=== PATIENT | female | born 1940 | race Caucasian/White ===

== ENCOUNTER 2021-02-25 12:33 | Emergency (ER) | payer MEDICARE, OTHER ==
[2021-02-25 12:40] VITALS: BP 176/73
== END 2021-02-25 12:54 | disposition home or self-care (01) ==
LOC: ED 12:33
DX: J31.0 Chronic rhinitis (principal); Z20.822 Contact with and (suspected) exposure to COVID-19; I10 Essential (primary) hypertension; Z85.53 Personal history of malignant neoplasm of renal pelvis; Z91.048 Other nonmedicinal substance allergy status; Z90.5 Acquired absence of kidney; Z90.711 Acquired absence of uterus with remaining cervical stump; Z90.49 Acquired absence of other specified parts of digestive tract